=== PATIENT | female | born 1975 | race Caucasian/White ===

== ENCOUNTER 2017-04-09 14:38 | Emergency (ER) | payer OTHER ==
[~2017-04-09] VITALS: Ht 160 cm; Wt 91.8 kg
[~2017-04-09 14:38] MED LIST: ASPI-390 PO; VENL75TA4 PO
[2017-04-09 14:43] VITALS: TEMP 36.9
[2017-04-09] MEDS ORDERED: PSEU60TA80 PO (15:06)
[2017-04-09] MEDS ORDERED: ACETAMINOPHEN 500 MG TAB PO STA (15:13)
[2017-04-09] MEDS ORDERED: ONDANSETRON INJ 2 MG/ML 2 ML VIAL IV STA (15:13)
--- NOTE | 2017-04-09 15:20 | EMERGENCY ROOM VISIT NOTE ---
History First contact with patient: 14:47 Chief Complaint: ABDOMINAL PAIN Stated Complaint: LOWER ABDOMINAL PAIN/BACK CLAY Nursing Triage Summary: pt reports 3 weeks ago took home preg test was positive. has intermittent periods, pain in abd and thru to back History of Present Illness The patient is a 42 year old female with hx of depression, migraine headaches and endometriosis (s/p surgery) who presents to the Emergency Room with complaints of lower abdominal pain radiating to back that started this AM. Associated with nausea. Reports positive home test 3 weeks ago. Also reports congestion/cold symptoms (rhinorrhea, cough). Otherwise denies f/c, cp, sob, vomiting, dysuria, hematuria, vaginal discharge/bleeding. Sexually active with 1 male partner x 6 months without persistent contraception/condom usage. menstrual cycles are very light and irregular but she usually has spotting once a month (reports spotting in Jan, Feb and Mar). Reports 4 total pregnancies: 2 miscarriages and 2 live children. Could not see PCP until end of next week so came here. Review of Systems see below Constitutional: No fever, No chills Respiratory: No shortness of breath Cardiovascular: No chest pain Abdomen: + pain (lower abdominal pain radiating to back), + nausea, No vomiting Genitourinary - Female: No dysuria, No hematuria, No vaginal bleeding, No vaginal discharge Neurologic: No weakness, No numbness/tingling Past Medical/Surgical History Medical Problems: (1) Cholecystectomy (2) Depression (3) Endometriosis (4) Flank abrasion (5) Left elbow contusion Family History Diabetes mellitus Hypertension Social History Smoking Status: Current Every Day Smoker Alcohol Use: occasionally Drug Use: none Marital Status: single Housing Status: lives with family Occupation Status: employed Current/Historical Medications Scheduled Pseudoephedrine-Guaifenesin (Mucinex D), 2 TAB PO BID Venlafaxine Hcl (Effexor), 75 MG PO QPM Scheduled PRN Hfnikxj-Hlhxjuhnwtnez-Dutzwljc (Excedrin Migraine), 1-2 TABS PO Q8 PRN for Headache Physical Exam Vital Signs Date Time Temp Pulse Resp B/P (MAP) Pulse Ox O2 Delivery O2 Flow Rate FiO2 04/09/17 16:19 65 16 116/78 98 Room Air 04/09/17 14:43 36.9 88 18 137/88 96 Room Air Physical Exam see below General Appearance: no apparent distress Head: normocephalic, atraumatic Eyes: normal inspection, PERRL ENT: TMs normal, pharynx normal, + nasal congestion Neck: no adenopathy Respiratory/Chest: normal breath sounds, + wheezing (end-inspiratory) Cardiovascular: regular rate, rhythm, no murmur Abdomen / GI: normal bowel sounds, soft, + tenderness (RLQ and suprapubic TTP), + pertinent finding (negative psoas sign, no rebound TTP) Back: no CVA tenderness Extremities: normal inspection Medical Decision & Procedures Laboratory Results 04/09/17 15:20 Red Blood Count 5.06, Mean Corpuscular Volume 93.9, Mean Corpuscular Hemoglobin 33.2, Mean Corpuscular Hemoglobin Concent 35.4, Mean Platelet Volume 10.8, Neutrophils (%) (Auto) 68.7, Lymphocytes (%) (Auto) 22.6, Monocytes (%) (Auto) 7.4, Eosinophils (%) (Auto) 0.9, Basophils (%) (Auto) 0.3, Neutrophils # (Auto) 5.99, Lymphocytes # (Auto) 1.97, Monocytes # (Auto) 0.65, Eosinophils # (Auto) 0.08, Basophils # (Auto) 0.03 04/09/17 15:20 Test 04/09/17 15:20 04/09/17 15:24 White Blood Count 8.73 K/uL (4.8-10.8) Red Blood Count 5.06 M/uL (4.2-5.4) Hemoglobin 16.8 g/dL (12.0-16.0) Hematocrit 47.5 % (37-47) Mean Corpuscular Volume 93.9 fL (80-100) Mean Corpuscular Hemoglobin 33.2 pg (25-34) Mean Corpuscular Hemoglobin Concent 35.4 g/dl (32-36) Platelet Count 202 K/uL (130-400) Mean Platelet Volume 10.8 fL (7.4-10.4) Neutrophils (%) (Auto) 68.7 % Lymphocytes (%) (Auto) 22.6 % Monocytes (%) (Auto) 7.4 % Eosinophils (%) (Auto) 0.9 % Basophils (%) (Auto) 0.3 % Neutrophils # (Auto) 5.99 K/uL (1.4-6.5) Lymphocytes # (Auto) 1.97 K/uL (1.2-3.4) Monocytes # (Auto) 0.65 K/uL (0.11-0.59) Eosinophils # (Auto) 0.08 K/uL (0-0.5) Basophils # (Auto) 0.03 K/uL (0-0.2) RDW Standard Deviation 42.8 fL (36.4-46.3) RDW Coefficient of Variation 12.5 % (11.5-14.5) Immature Granulocyte % (Auto) 0.1 % Immature Granulocyte # (Auto) 0.01 K/uL (0.00-0.02) Prothrombin Time 9.8 SECONDS (9.0-12.0) Prothromb Time International Ratio 0.9 (0.9-1.1) Activated Partial Thromboplast Time 24.6 SECONDS (21.0-31.0) Partial Thromboplastin Ratio 0.9 Anion Gap 6.0 mmol/L (3-11) Est Creatinine Clear Calc Drug Dose 92.6 ml/min Estimated GFR () 97.3 Estimated GFR (Non- 83.9 BUN/Creatinine Ratio 10.2 (10-20) Calcium Level 8.7 mg/dl (8.5-10.1) Total Bilirubin 0.3 mg/dl (0.2-1) Aspartate Amino Transf (AST/SGOT) 17 U/L (15-37) Alanine Aminotransferase (ALT/SGPT) 25 U/L (12-78) Alkaline Phosphatase 70 U/L (45-117) Total Protein 7.1 gm/dl (6.4-8.2) Albumin 3.6 gm/dl (3.4-5.0) Globulin 3.5 gm/dl (2.5-4.0) Albumin/Globulin Ratio 1.0 (0.9-2) Human Chorionic Gonadotropin, Quant 70022 mIU/mL Urine Color DK YELLOW Urine Appearance CLEAR (CLEAR) Urine pH 5.0 (4.5-7.5) Urine Specific [place] 1.024 (1.000-1.030) Urine Protein NEG (NEG) Urine Glucose (UA) NEG (NEG) Urine Ketones NEG (NEG) Urine Occult Blood NEG (NEG) Urine Nitrite NEG (NEG) Urine Bilirubin NEG (NEG) Urine Urobilinogen NEG (NEG) Urine Leukocyte Esterase NEG (NEG) Medications Administered Medications (Trade) Dose Ordered Sig/Ting Route Start Time Stop Time Status Last Admin Dose Admin Ondansetron HCl (Zofran Inj) 4 mg NOW STAT IV 04/09/17 15:13 04/09/17 15:16 DC 04/09/17 15:22 4 MG Acetaminophen (Tylenol Tab) 1,000 mg NOW STAT PO 04/09/17 15:13 04/09/17 15:16 DC 04/09/17 15:22 1,000 MG Medical Decision 42 year old female with hx of depression, migraine headaches and endometriosis (s/p surgery) presents with worsening lower abdominal pain radiating to back since this AM. Concerning for ectopic (given positive home preg test and lower abdominal pain) vs. UTI (given suprapubic pain radiating to back) vs. kidney stones (abdominal pain radiating to back) vs. STI vs. appendicitis (given RLQ abdominal pain) vs. PID -To confirm ordered beta-HCG (76294 4-5wks preg) and US <14 weeks (early gestational and normal ovaries) -UA/UCx to rule out UTI - neg -Also ordered CBC w/t diff, coags, CMP - within normal limits -Received Tylenol and ondansetron for pain and nausea -Patient reports feeling better -Ready to be discharged home with OB follow up -Recommended taking Unisom OTC at night and B6 in the morning for nausea control ; recommended starting a PNV with iron; counseled on smoking cessation; recommended back exercises and stretching for back pain Impression Primary Impression: Abdominal pain Departure Information Dispostion Home / Self-Care Condition GOOD Referrals No Doctor, Assigned (PCP) Zahra Winn D.O. OBSTETRIC/GYNECOLOGY Patient Instructions My [facility] Additional Instructions Recommendation: -Follow up with Obstetrics for care: recommended [facility] practice -Please start taking a vitamin with iron -Please cut back and/or stop smoking tobacco to increase your chances of having a healthy and baby -Recommend doing back stretches and exercises to help with back pain -Recommend taking over the counter unisom (which is a sleep aid) at night and Vitamin B6 in the morning to help with nausea
[2017-04-09 15:29] VITALS: Ht 160 cm; Wt 91.8 kg
[2017-04-09 15:34] LABS: BASO % 0.3 %; BASO ABS # 0.03 K/uL (0-0.2); EOS % 0.9 %; EOS ABS # 0.08 K/uL (0-0.5); HEMATOCRIT 47.5 % (37-47); HEMOGLOBIN 16.8 g/dL (12.0-16.0); IG# 0.01 K/uL (0.00-0.02); LYMPH % 22.6 %; LYMPH ABS # 1.97 K/uL (1.2-3.4); MEAN CELL VOLUME 93.9 fL (80-100); MEAN CORPUSCULAR HEMOGLOBIN 33.2 pg (25-34); MEAN CORPUSCULAR HGB CONC 35.4 g/dl (32-36); MEAN PLATELET VOLUME 10.8 fL (7.4-10.4); MONO % 7.4 %; MONO ABS # 0.65 K/uL (0.11-0.59); NEUT % 68.7 %; NEUT ABS # 5.99 K/uL (1.4-6.5); PLATELET COUNT 202 K/uL (130-400); RED CELL DISTRIBUTION WIDTH CV 12.5 % (11.5-14.5); RED CELL DISTRIBUTION WIDTH SD 42.8 fL (36.4-46.3); WHITE BLOOD COUNT 8.73 K/uL (4.8-10.8)
[2017-04-09 15:42] LABS: INR 0.9 (0.9-1.1); PTT PATIENT 24.6 SECONDS (21.0-31.0)
[2017-04-09 15:51] LABS: ALBUMIN 3.6 gm/dl (3.4-5.0); CALCIUM 8.7 mg/dl (8.5-10.1); CREATININE 0.86 mg/dl (0.60-1.20); POTASSIUM 3.3 mmol/L (3.5-5.1)
[2017-04-09 15:54] LABS: TOTAL PROTEIN 7.1 gm/dl (6.4-8.2)
--- NOTE | 2017-04-09 16:23 | EMERGENCY ROOM VISIT NOTE ---
History Report prepared by Parish: Colton Manzo Under the Supervision of: Dr. Mauri Ontiveros M.D. First contact with patient: 14:58 Chief Complaint: ABDOMINAL PAIN Stated Complaint: LOWER ABDOMINAL PAIN/BACK CLAY Nursing Triage Summary: pt reports 3 weeks ago took home preg test was positive. has intermittent periods, pain in abd and thru to back History of Present Illness The patient is a 42 year old white female with a past medical history of endometriosis, cholecystectomy and depression who presents to the ED with a cc of constant lower abdominal pain beginning today. Patient had a positive home test three weeks ago. Positive nausea. Negative fevers, vomiting, chills, urinary symptoms, or vaginal bleeding. Has been sexually active with one male partner over the past six months. No noticed broken condoms. G5-P2-A2. Patient is a smoker. Patient has had a headache recently for which she has taken Excedrin. No recent falls, or trauma. No recent straining. Source of History: patient Onset: Today Position: abdomen (lower) Timing: constant Associated Symptoms: + headache, + nausea, No fevers, No chills, No urinary symptoms Note: Negative: vaginal bleeding. Review of Systems See HPI for pertinent positives and negatives. A total of ten systems were reviewed and were otherwise negative. Past Medical & Surgical Medical Problems: (1) Cholecystectomy (2) Depression (3) Endometriosis (4) Flank abrasion (5) Left elbow contusion Family History Diabetes mellitus Hypertension Social History Smoking Status: Current Every Day Smoker Alcohol Use: occasionally Drug Use: none Marital Status: single Housing Status: lives with family Occupation Status: employed Current/Historical Medications Scheduled Pseudoephedrine-Guaifenesin (Mucinex D), 2 TAB PO BID Venlafaxine Hcl (Effexor), 75 MG PO QPM Scheduled PRN Evidjpt-Myptbrmftuqkk-Gcgedwnr (Excedrin Migraine), 1-2 TABS PO Q8 PRN for Headache Allergies Coded Allergies: Amoxicillin (Verified Allergy, Unknown, sick in stomach, 04/09/17) Clavulanic Acid (Verified Allergy, Unknown, sick in stomach, 04/09/17) Physical Exam Vital Signs Date Time Temp Pulse Resp B/P (MAP) Pulse Ox O2 Delivery O2 Flow Rate FiO2 04/09/17 17:48 64 18 107/74 98 04/09/17 16:19 65 16 116/78 98 Room Air 04/09/17 14:43 36.9 88 18 137/88 96 Room Air Physical Exam GENERAL: Awake, alert, well-appearing, NAD HENT: Normocephalic, atraumatic. EYES: Normal conjunctiva. Sclera non-icteric. NECK: Supple. No nuchal rigidity. FROM. RESPIRATORY: CTAB, no rhonchi, wheezing, crackles CARDIAC: RRR, no MRG ABDOMEN: Soft, ND, BS+. Mild suprapubic TTP. Negative obturators and psoas. No CVA TTP. MSK: No chest wall TTP, no LE edema NEURO: GCS 15, CN 2-12 intact, moves all 4s on command SKIN: No rash or jaundice noted. Medical Decision & Procedures ER Provider Diagnostic Interpretation: Radiology results as stated below per my review and radiologist interpretation: <14 WKS SINGLE FINDINGS: Uterus: Gestational sac evident without yolk sac or pole. Gestational Gestational sac measures 9 mm. Retroflexed uterus. Unable to accurately assess placental implantation secondary to early gestational age. No perigestational fluid to suggest hemorrhage. Cervix contains nabothian cysts and is closed. Right adnexa: Right ovary normal. Right ovary measures 1.2 x 1.9 x 1.3 cm. Normal color Doppler flow and arterial and venous waveforms within the ovarian parenchyma. Left adnexa: Left ovary contains a corpus luteum. Left ovary measures 2.8 x 3.4 x 2.8 cm. Normal color Doppler flow and arterial and venous waveforms within the ovarian parenchyma. Other: No free fluid. IMPRESSION: Gestational sac without the yolk sac or pole consistent with early gestational age. Gestational sac measures 9 mm. Normal ovaries. Electronically signed by: Behzad Padilla M.D. 04/09/2017 5:14 PM Laboratory Results 04/09/17 15:20 Red Blood Count 5.06, Mean Corpuscular Volume 93.9, Mean Corpuscular Hemoglobin 33.2, Mean Corpuscular Hemoglobin Concent 35.4, Mean Platelet Volume 10.8, Neutrophils (%) (Auto) 68.7, Lymphocytes (%) (Auto) 22.6, Monocytes (%) (Auto) 7.4, Eosinophils (%) (Auto) 0.9, Basophils (%) (Auto) 0.3, Neutrophils # (Auto) 5.99, Lymphocytes # (Auto) 1.97, Monocytes # (Auto) 0.65, Eosinophils # (Auto) 0.08, Basophils # (Auto) 0.03 04/09/17 15:20 Test 04/09/17 15:20 04/09/17 15:24 White Blood Count 8.73 K/uL (4.8-10.8) Red Blood Count 5.06 M/uL (4.2-5.4) Hemoglobin 16.8 g/dL (12.0-16.0) Hematocrit 47.5 % (37-47) Mean Corpuscular Volume 93.9 fL (80-100) Mean Corpuscular Hemoglobin 33.2 pg (25-34) Mean Corpuscular Hemoglobin Concent 35.4 g/dl (32-36) Platelet Count 202 K/uL (130-400) Mean Platelet Volume 10.8 fL (7.4-10.4) Neutrophils (%) (Auto) 68.7 % Lymphocytes (%) (Auto) 22.6 % Monocytes (%) (Auto) 7.4 % Eosinophils (%) (Auto) 0.9 % Basophils (%) (Auto) 0.3 % Neutrophils # (Auto) 5.99 K/uL (1.4-6.5) Lymphocytes # (Auto) 1.97 K/uL (1.2-3.4) Monocytes # (Auto) 0.65 K/uL (0.11-0.59) Eosinophils # (Auto) 0.08 K/uL (0-0.5) Basophils # (Auto) 0.03 K/uL (0-0.2) RDW Standard Deviation 42.8 fL (36.4-46.3) RDW Coefficient of Variation 12.5 % (11.5-14.5) Immature Granulocyte % (Auto) 0.1 % Immature Granulocyte # (Auto) 0.01 K/uL (0.00-0.02) Prothrombin Time 9.8 SECONDS (9.0-12.0) Prothromb Time International Ratio 0.9 (0.9-1.1) Activated Partial Thromboplast Time 24.6 SECONDS (21.0-31.0) Partial Thromboplastin Ratio 0.9 Anion Gap 6.0 mmol/L (3-11) Est Creatinine Clear Calc Drug Dose 92.6 ml/min Estimated GFR () 97.3 Estimated GFR (Non- 83.9 BUN/Creatinine Ratio 10.2 (10-20) Calcium Level 8.7 mg/dl (8.5-10.1) Total Bilirubin 0.3 mg/dl (0.2-1) Aspartate Amino Transf (AST/SGOT) 17 U/L (15-37) Alanine Aminotransferase (ALT/SGPT) 25 U/L (12-78) Alkaline Phosphatase 70 U/L (45-117) Total Protein 7.1 gm/dl (6.4-8.2) Albumin 3.6 gm/dl (3.4-5.0) Globulin 3.5 gm/dl (2.5-4.0) Albumin/Globulin Ratio 1.0 (0.9-2) Human Chorionic Gonadotropin, Quant 71022 mIU/mL Urine Color DK YELLOW Urine Appearance CLEAR (CLEAR) Urine pH 5.0 (4.5-7.5) Urine Specific [place] 1.024 (1.000-1.030) Urine Protein NEG (NEG) Urine Glucose (UA) NEG (NEG) Urine Ketones NEG (NEG) Urine Occult Blood NEG (NEG) Urine Nitrite NEG (NEG) Urine Bilirubin NEG (NEG) Urine Urobilinogen NEG (NEG) Urine Leukocyte Esterase NEG (NEG) Laboratory results reviewed by me Medications Administered Medications (Trade) Dose Ordered Sig/Ting Route Start Time Stop Time Status Last Admin Dose Admin Ondansetron HCl (Zofran Inj) 4 mg NOW STAT IV 04/09/17 15:13 04/09/17 15:16 DC 04/09/17 15:22 4 MG Acetaminophen (Tylenol Tab) 1,000 mg NOW STAT PO 04/09/17 15:13 04/09/17 15:16 DC 04/09/17 15:22 1,000 MG ED Course 1458: The patient was evaluated in room B4B. A complete history and physical exam was performed. 1720: I reevaluated the patient. Discussed results and discharge instructions: she verbalized understanding and agreement. The patient is ready for discharge. Medical Decision The patient is a 42 year old white female with a past medical history of cholecystectomy and depression who presents to the ED with a cc of constant lower abdominal pain beginning today. Differential diagnosis includes etiologies such as appendicitis, diverticulitis , PUD, biliary pathology, UTI, pancreatitis, obstruction, mesenteric ischemia, aortic pathology, infections, inflammatory bowel disease, renal colic, as well as others were entertained. Patient was seen and evaluated at the bedside. Patient is a 42-year-old 0 -2 presents with chief complaint of some mild lower abdominal pain with nausea. Patient states that her LMP was sometimes last month that she has had irregular and very short periods. Patient denies any current vaginal bleeding or discharge. Patient does state that she has had nausea but without vomiting. No recent antibiotic use. Patient does smoke and does not take prenatals. Patient was advised to quit smoking and to start vitamins. Patient was also told to avoid Excedrin as it does have aspirin in it. She does take this for migraines. Patient has no CVA tenderness palpation. Does have some suprapubic discomfort but with out any right lower quadrant tenderness to palpation. Patient had a negative obturators and psoas. Patient did have blood work completed along with a beta Quant and pelvic ultrasound given no prior documented ultrasound. US showed Gestational sac without the yolk sac or pole consistent with early gestational age. Gestational sac measures 9 mm. Normal ovaries. Patient' s beta hCG was 11,000. Patient had no other very unremarkable lab values. LFTs and lipase were within normal limits. Patient normal kidney function. Patient urinalysis negative for any infection. Patient again was informed that she should not smoke, use Excedrin or NSAIDs, and she did take vitamins. Patient was also encouraged to follow-up with an [facility] physician for further evaluation, treatment, and management. Patient was given strict follow-up, discharge, and return precautions. All questions were answered. Patient was deemed suitable for outpatient follow-up at this time. Patient agreed with the plan of care and was safely discharged home. Medication Reconcilliation Current Medication List: was personally reviewed by me Blood Pressure Screening Patient's blood pressure: Normal blood pressure Blood pressure disposition: Did not require urgent referral Impression Primary Impression: Additional Impressions: Abdominal pain Encounter for smoking cessation counseling Scribe Attestation The scribe's documentation has been prepared under my direction and personally reviewed by me in its entirety. I confirm that the note above accurately reflects all work, treatment, procedures, and medical decision making performed by me. Departure Information Dispostion Home / Self-Care Referrals No Doctor, Assigned (PCP) Forms Call Back Authorization, HOME CARE DOCUMENTATION FORM, IMPORTANT VISIT INFORMATION Patient Instructions My [facility] [employer], Preg 1st Trimester Additional Instructions Recommendation: -Follow up with Obstetrics for care: recommended [facility] practice -Please start taking a vitamin with iron -Please cut back and/or stop smoking tobacco to increase your chances of having a healthy and baby -Recommend doing back stretches and exercises to help with back pain -Recommend taking over the counter unisom (which is a sleep aid) at night and Vitamin B6 in the morning to help with nausea Problem Qualifiers Primary Impression: Weeks of gestation: less than 8 weeks Qualified Codes: Z3A.01 - Less than 8 weeks gestation of Additional Impressions: Abdominal pain Abdominal location: unspecified location Qualified Codes: R10.9 - Unspecified abdominal pain
--- NOTE | 2017-04-09 17:15 | DIAGNOSTIC IMAGING REPORT ---
<14 WKS SINGLE CLINICAL HISTORY: 42 years-old Female presenting with recent home w/ ab pain. TECHNIQUE: Real-time grayscale and M-mode Doppler ultrasound imaging of the pelvis was performed first using a transabdominal probe and subsequently transvaginal for better characterization. Color and spectral Doppler ultrasound imaging of the adnexa was also performed. COMPARISON: None. FINDINGS: Uterus: Gestational sac evident without yolk sac or pole. Gestational Gestational sac measures 9 mm. Retroflexed uterus. Unable to accurately assess placental implantation secondary to early gestational age. No perigestational fluid to suggest hemorrhage. Cervix contains nabothian cysts and is closed. Right adnexa: Right ovary normal. Right ovary measures 1.2 x 1.9 x 1.3 cm. Normal color Doppler flow and arterial and venous waveforms within the ovarian parenchyma. Left adnexa: Left ovary contains a corpus luteum. Left ovary measures 2.8 x 3.4 x 2.8 cm. Normal color Doppler flow and arterial and venous waveforms within the ovarian parenchyma. Other: No free fluid. IMPRESSION: Gestational sac without the yolk sac or pole consistent with early gestational age. Gestational sac measures 9 mm. Normal ovaries. Electronically signed by: Behzad Padilla M.D. 04/09/2017 5:14 PM Dictated Date/Time: 04/09/2017 5:08 PM
[2017-04-09 17:48] VITALS: BP 107/74; PULSE 64; O2SAT 98
== END 2017-04-09 17:49 | disposition home or self-care (01) ==
LOC: C.EDB 14:41
DX: R10.9 Unspecified abdominal pain (principal); F32.9 Major depressive disorder, single episode, unspecified; Z83.3 Family history of diabetes mellitus; Z82.49 Family history of ischemic heart disease and other diseases of the circulatory system; F17.200 Nicotine dependence, unspecified, uncomplicated